=== PATIENT | female | born 2005 | race Two or more races ===

== ENCOUNTER 2025-07-08 18:08 | Emergency (ER) | payer OTHER ==
[~2025-07-08] VITALS: Ht 157.5 cm; Wt 57.2 kg
[2025-07-08] MEDS ORDERED: KETOROLAC TROMETHAMINE 30 MG VIAL IM STA (21:33)
[2025-07-08] MEDS ORDERED: IBU800 MG PO (21:46)
== END 2025-07-08 21:34 | disposition home or self-care (01) ==
LOC: ER 18:08
DX: T70.0XXA Otitic barotrauma, initial encounter (principal)